=== PATIENT | female | born 1985 | race Caucasian/White ===

== ENCOUNTER 2017-10-12 15:38 | Emergency (ER) | payer OTHER ==
--- NOTE | 2017-10-12 17:28 | ER ---
Nurse's Notes [facility] Name: Kailey Lin Age: 32 yrs Sex: Female : 1985 Arrival Date: 10/12/2017 Time: 15:39 Bed 27 Private MD: CHRIS RANKIN Diagnosis: Bicipital tendinitis, right shoulder Presentation: 10/12 15:57 Presenting complaint: Patient states: "I was lifting linen and had sudden sharp pain jl7 the the right shoulder that's tingling.". Transition of care: patient was not received from another setting of care. Onset of symptoms was October 12, 2017. Risk Assessment: Do you want to hurt yourself or someone else? Patient reports no desire to harm self or others. Initial Sepsis Screen: Does the patient meet any 2 criteria? No. Patient's initial sepsis screen is negative. Does the patient have a suspected source of infection? No. Patient's initial sepsis screen is negative. Care prior to arrival: None. 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 - Social history:: Smoking status: Patient/guardian denies using tobacco. - Ebola Screening: : No symptoms or risks identified at this time. Screenin:11 Abuse screen: Denies threats or abuse. Denies injuries from another. Nutritional aj screening: No deficits noted. Tuberculosis screening: No symptoms or risk factors identified. Fall Risk None identified. Assessment: 16:11 General: Appears in no apparent distress. comfortable, Behavior is calm, cooperative, aj appropriate for age. Pain: Complains of pain in anterior aspect of right shoulder and posterior aspect of right shoulder Aggravated by repositioning. Neuro: Level of Consciousness is awake, alert, obeys commands, Oriented to person, place, time, situation, Appropriate for age. Respiratory: Airway is patent Respiratory effort is even, unlabored, Respiratory pattern is regular, symmetrical. Derm: Skin is intact, is healthy with good turgor, Skin is pink, warm \\T\\ dry. normal. Musculoskeletal: Circulation, motion, and sensation intact. Capillary refill < 3 seconds, in bilateral fingers. Range of motion: intact in all extremities, Reports pain in anterior aspect of right shoulder and posterior aspect of right shoulder. Vital Signs: 15:59 BP 121 / 75; Pulse 71; Resp 14 S; Temp 97.4(O); Pulse Ox 98% on R/A; Weight 96.62 kg jl7 (R); Height 5 ft. 6 in. (167.64 cm) (R); Pain 7/10; 17:15 BP 114 / 76; Pulse 87; Resp 19; Pulse Ox 99% on R/A; aj 15:59 Body Mass Index 34.38 (96.62 kg, 167.64 cm) jl7 ED Course: 15:39 Patient arrived in ED. sb2 15:39 CHRIS RANKIN is Private Physician. sb2 15:58 Triage completed. jl7 15:59 Arm band placed on right wrist. jl7 16:00 Trevor Britt, DILIA is Primary Nurse. jb4 16:03 Jeyson Orozco MD is Attending Physician. ps1 16:11 Patient has correct armband on for positive identification. aj 16:50 Pam Mchugh, DILIA is Primary Nurse. aj 17:26 CHRIS RANKIN is Referral Physician. ps1 17:27 Jose Srinivasan MD is Referral Physician. ps1 17:33 No provider procedures requiring assistance completed. Patient did not have IV access aj during this emergency room visit. Administered Medications: No medications were administered Outcome: 17:27 Discharge ordered by . ps1 17:33 Discharged to home ambulatory. aj 17:33 Condition: good 17:33 Discharge instructions given to patient, Instructed on discharge instructions, follow up and referral plans. medication usage, Demonstrated understanding of instructions, follow-up care, medications, Prescriptions given X 2. 17:36 Patient left the ED. aj Signatures: Pam Mchugh, RN Trevor Lee, DILIA DOBBS jb4 Matt Liu RN RN jl7 Jeyson Orozco MD MD ps1 Thea Goodson sb2
--- NOTE | 2017-10-12 17:28 | EDPHYS ---
Physician Documentation [facility] Name: Kailey Lin Age: 32 yrs Sex: Female : 1985 Arrival Date: 10/12/2017 Time: 15:39 Bed 27 Private MD: CHRIS RANKIN ED Physician Jeyson Orozco HPI: 10/12 17:15 This 32 yrs old Female presents to ER via Ambulatory with complaints of ps1 Shoulder Injury - EMPLOYEE. 17:15 Patient states that she hurt her right shoulder when lifting a bag with wet linen. She ps1 states that the pain is rated as moderate and worse with movement of her arm. This was a non-traumatic injury. No fever, no rashes. . 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 - Social history:: Smoking status: Patient/guardian denies using tobacco. - Ebola Screening: : No symptoms or risks identified at this time. ROS: 17:15 Constitutional: Negative for fever, chills, and weight loss, Eyes: Negative for injury, ps1 pain, redness, and discharge, Cardiovascular: Negative for chest pain, palpitations, and edema, Respiratory: Negative for shortness of breath, cough, wheezing, and pleuritic chest pain, Abdomen/GI: Negative for abdominal pain, nausea, vomiting, diarrhea, and constipation, Skin: Negative for injury, rash, and discoloration, Neuro: Negative for headache, weakness, numbness, tingling, and seizure. 17:15 MS/extremity: Positive for decreased range of motion, tenderness. Exam: 17:15 Constitutional: This is a well developed, well nourished patient who is awake, alert, ps1 and in no acute distress. Head/Face: Normocephalic, atraumatic. Eyes: Pupils equal round and reactive to light, extra-ocular motions intact. Lids and lashes normal. Conjunctiva and sclera are non-icteric and not injected. Chest/axilla: Normal chest wall appearance and motion. Nontender with no deformity. No lesions are appreciated. Cardiovascular: Regular rate and rhythm. No gallops, murmurs, or rubs. Normal PMI, no JVD. No pulse deficits. Respiratory: Lungs have equal breath sounds bilaterally, clear to auscultation and percussion. No rales, rhonchi or wheezes noted. No increased work of breathing, no retractions or nasal flaring. Abdomen/GI: Soft, non-tender, with normal bowel sounds. No distension or tympany. No guarding or rebound. No evidence of tenderness throughout. Skin: Warm, dry with normal turgor. Normal color with no rashes, no lesions, and no evidence of cellulitis. 17:15 Musculoskeletal/extremity: Extremities: grossly normal except: noted in the anterior aspect of right shoulder: decreased ROM, patient has exam consistent with bicipital tendonitis. Pain with palpation of bicipital groove with flexion of elbow and supination. Vital Signs: 15:59 BP 121 / 75; Pulse 71; Resp 14 S; Temp 97.4(O); Pulse Ox 98% on R/A; Weight 96.62 kg jl7 (R); Height 5 ft. 6 in. (167.64 cm) (R); Pain 7/10; 17:15 BP 114 / 76; Pulse 87; Resp 19; Pulse Ox 99% on R/A; aj 15:59 Body Mass Index 34.38 (96.62 kg, 167.64 cm) jl7 MDM: 16:14 Patient medically screened. ps1 17:21 Data reviewed: vital signs, nurses notes, and as a result, I will discharge patient. ps1 Counseling: I had a detailed discussion with the patient and/or guardian regarding: the historical points, exam findings, and any diagnostic results supporting the discharge/admit diagnosis, the need for outpatient follow up, a orthopedic surgeon, sports medicine of her choice. Special discussion: I discussed with the patient/guardian in detail that at this point there is no indication for admission to the hospital. It is understood, however, that if the symptoms persist or worsen the patient needs to return immediately for re-evaluation. Administered Medications: No medications were administered Disposition: 10/12/17 17:27 Discharged to Home. Impression: Bicipital tendinitis, right shoulder. - Condition is Stable. - Discharge Instructions: Bicipital Tendinitis. - Prescriptions for Anaprox DS 550 mg Oral Tablet - take 1 tablet by ORAL route every 12 hours As needed; 20 tablet. Medrol (Clemente) 4 mg Oral Tablets, Dose Pack - take 1 tablet by ORAL route as directed - follow package instructions; 1 packet. - Medication Reconciliation Form, Thank You Letter, Antibiotic Education, Prescription Opioid Use form. - Follow up: CHRIS RANKIN; When: As needed; Reason: Recheck today's complaints, Continuance of care, Re-evaluation by your physician. Follow up: Jose Srinivasan MD; When: As needed; Reason: Further diagnostic work-up. Follow up: Emergency Department; When: As needed; Reason: Fever > 102 F, Worsening of condition. - Problem is new. - Symptoms are unchanged. Signatures: Pam Mchugh RN RN Matt Jones RN RN jl7 Jeyson Orozco MD MD ps1 Corrections: (The following items were deleted from the chart) 17:36 17:27 10/12/2017 17:27 Discharged to Home. Impression: Bicipital tendinitis, right aj shoulder. Condition is Stable. Forms are Medication Reconciliation Form, Thank You Letter, Antibiotic Education, Prescription Opioid Use. Follow up: CHRIS RANKIN; When: As needed; Reason: Recheck today's complaints, Continuance of care, Re-evaluation by your physician. Follow up: Jose Srinivasan; When: As needed; Reason: Further diagnostic work-up. Follow up: Emergency Department; When: As needed; Reason: Fever > 102 F, Worsening of condition. Problem is new. Symptoms are unchanged. ps1
[2017-10-12 17:41] VITALS: TEMP 97.4
[2017-10-12 17:42] VITALS: BP 114/76; O2SAT 99
== END 2017-10-12 17:36 | disposition home or self-care (01) ==
LOC: ER 15:38
DX: M75.21 Bicipital tendinitis, right shoulder (principal)
CPT/HCPCS: 99282

== ENCOUNTER 2018-08-24 00:45 | Inpatient (IN) | payer OTHER ==
[2018-08-24] MEDS ORDERED: BUTORPHANOL 1 MG/ML INJ IV PRN (04:07)
[2018-08-24] MEDS ORDERED: METHYLERGONOVINE 0.2MG/ML AMP IM PRN (04:07)
[2018-08-24] MEDS ORDERED: PROMETHAZINE 25 MG/ML VIAL IM PRN (04:07)
[2018-08-24] MEDS ORDERED: Ringers Lactate 1,000 ML IV PRN (04:07)
[2018-08-24] MEDS ORDERED: CARBOPROST TROME 250 MCG/ML IM PRN (04:07)
[2018-08-24] MEDS ORDERED: OXYTOCIN/LR 20 UNIT/1,000 ML BAG IV SCH ×2 (05:00→10:00)
[2018-08-24] MEDS ORDERED: Ringers Lactate 1,000 ML IV SCH (05:00)
[2018-08-24 05:03] LABS: RPR Titer ND
[2018-08-24 05:10] LABS: Urine Appearance TURBID; Urine Bilirubin NEGATIVE (NEG); Urine Blood 2+ (NEG); Urine Color YELLOW; Urine Glucose NEGATIVE (NEG); Urine Protein NEGATIVE (NEG); Urine pH 6.5 (5.0-7.0)
[2018-08-24 05:10] LABS: Absolute Lymphocytes (CBC) 1.2 K/uL (0.7-4.9); Basophils % 0.3 % (0-1.3); Eosinophils % 0.4 % (0-4.4); Hematocrit 33.8 % (36.0-45.0); Lymphocytes % 11.8 % (15.3-44.8); MPV 10.6 fL (7.6-11.3); Monocytes % 8.6 % (3.3-12.3); RBC Red Blood Cell Count 3.74 M/uL (3.86-4.86)
[2018-08-24 05:22] LABS: Urine Microscopic Reflex ORDER UMIC
[2018-08-24 05:31] LABS: Urine Bacteria >50 /HPF (<20); Urine Culture Reflex Order REFLEXED
[2018-08-24] MEDS ORDERED: ROPIVACAINE HCL 100 ML IV PRN (08:53)
[2018-08-24] MEDS ORDERED: FENTANYL CITR 100 MCG/2 ML IV ONE (08:53)
[2018-08-24] MEDS ORDERED: ROPIVACAINE HCL 2 MG/ML 100ML IV SCH (09:00)
[2018-08-24] MEDS ORDERED: Oxycodone HCl/Acetaminophen 1 TAB TAB PO PRN (09:49)
[2018-08-24] MEDS ORDERED: DIPHENHYDRAMINE 25 MG TAB/CAP PO PRN (09:49)
[2018-08-24] MEDS ORDERED: DOCUSATE NA/SENNA CONC 1 TAB PO PRN (09:49)
[2018-08-24] MEDS ORDERED: BISACODYL 10 MG RECTAL SUPP RECT PRN (09:49)
[2018-08-24] MEDS ORDERED: IBUPROFEN 200 MG TAB PO PRN (09:49)
[2018-08-24] MEDS ORDERED: ACETAMINOPHEN 500 MG TAB PO PRN (09:49)
[2018-08-24] MEDS ORDERED: LIDOCAINE 1% MPF 30 ML VIAL ONE (09:56)
--- NOTE | 2018-08-24 11:42 | PREOPHP ---
Date of Admission: 08/24/2018 A 33-year-old, 2, para 1, 39 weeks gestation, Rh negative has received RhoGAM during the preg palmira. Immune to Rubella. Negative beta strep screen. For labor induction, 2.5 cm slightly posteri or, 50% effaced, vertex, well applied, -1 station. Rupture of membranes, clear fluid. FHTs normal, reactive. Anticipate more active progress as the day goes on. The patient will be requesting tona duckworth. Full labor talk given. JIMBO/FREDI Voice ID: [id number]
[2018-08-24 16:24] VITALS: BMI 38.7
[2018-08-24] MEDS: Oxycodone HCl/Acetaminophen 1 TAB TAB PO PRN (19:21)
--- NOTE | 2018-08-24 19:39 | OP ---
Surgeon: Zackery Gamez MD A 33-year-old, 2, para 1, 39 weeks gestation, 2.5 cm on admission. Rh negative, received Rho RUPERTO during the . Immune to Rubella. Negative beta strep screen. During the labor, receive d Stadol 1 mg IV, Phenergan 25 mg IM, at 4 cm requested epidural anesthesia but went to complete and on the perineum within the next 20 to 30 minutes. Second stage of 10-15 minutes. Spontaneous vagina l delivery of 7 pounds 5 ounce male infant, Apgars 9 and 9. Very small first degree laceration requi ring 2 stitches 2-0 chromic under local infiltration. Schultze delivery of the placenta, which inspe cted and noted to be intact and normal. A 300 cc or less blood loss. Tolerated all procedures well. Final Diagnoses: Term intrauterine . Vaginal delivery. Rh negative. RhoGAM pending. JIMBO/FREDI Voice ID: [id number] Report ID: [id number]
[2018-08-24 21:09] LABS: RPR (Rapid Plasma Reagin) NON-REACT (NON-REACT)
[2018-08-25] MEDS: Oxycodone HCl/Acetaminophen 1 TAB TAB PO PRN (00:35)
[2018-08-25 07:53] VITALS: BP 109/62; TEMP 97
--- NOTE | 2018-08-26 05:47 | DS ---
Date of Discharge: 08/25/2018 A 33-year-old, 2, para 1, 39 weeks gestation, delivered a 7 pound 5 ounce male infant. s 9 and 9. No episiotomy. One laceration, first degree; it required 2 stitches 2-0 chromic under lo jagjit infiltration. Had 1 mg of Stadol during the labor, 25 mg of Phenergan IM, went rapidly to comple te. Second stage of 10-15 minutes. Schultze delivery of the placenta, which was inspected and noted to be intact and normal. Less than 300 cc blood loss. Rh negative, has received RhoGAM during her and will receive RhoGAM before she leaves the hospital. Beta strep negative, immune to Rub alonso. ; afebrile, ambulating, and voiding. Lochia is normal. She will be dismissed later this morning to report back to my office in 6 weeks for followup, to report any temperature elevatio n of 100 degrees or greater, severe pain, heavy bleeding, or any other type of abnormalities. Dismis sed with tramadol for analgesia, although she may elect to take Motrin instead. Final Diagnoses: Term intrauterine , 39 weeks. Vaginal delivery. RhoGAM pending. JIMBO/FREDI Voice ID: [id number] Report ID: [id number]
[2018-08-26 19:12] LABS: HBsAG Nonreactive (Nonreactive)
== END 2018-08-25 12:25 | disposition home or self-care (01) | DRG 807 ==
LOC: 2ND-WC 04:13
PROVIDERS: ADMIT Specialist; ATTEND Specialist
PROC: 10E0XZZ Delivery of Products of Conception, External Approach (ICD-10-PCS; principal; 2018-08-24)
PROC: 0HQ9XZZ Repair Perineum Skin, External Approach (ICD-10-PCS; 2018-08-24)
PROC: 3E033VJ Introduction of Other Hormone into Peripheral Vein, Percutaneous Approach (ICD-10-PCS; 2018-08-24)
DX: O70.0 First degree perineal laceration during delivery (principal); Z37.0 Single live birth; O26.893 Other specified pregnancy related conditions, third trimester; Z67.91 Unspecified blood type, Rh negative; Z3A.39 39 weeks gestation of pregnancy
CPT/HCPCS: 36415; 81003; 81015; 85025; 85461; 86592; 86850; 86870; 86901; 87077; 87086; 87088; 87186; 87340; J0595; J2550; J2590; J2795